=== PATIENT | male | born 1980 ===

== ENCOUNTER 2020-04-20 22:34 | Emergency (ER) | payer OTHER ==
[~2020-04-20] VITALS: Ht 185.4 cm; Wt 79.4 kg
--- NOTE | 2020-04-20 22:40 | NUR ---
Patient brought in by [facility] 84 via gurney for what patient believes was a seizure, no history of seizures noted, Patient alert and oriented x4, no complaints of pain, Side rails padded per seizure protocol, suction at bedside, WNL
[2020-04-20] MEDS ORDERED: [UNRECOGNIZED DRUG - REMARK] (22:43)
[2020-04-20] MEDS ORDERED: IV NORMAL SALINE 1000 ML BAG IV ONE (22:45)
[2020-04-20 22:58] LABS: BASOPHILS # (AUTO) 0.1 K/uL (0.0-8.0); EOSINOPHILS # (AUTO) 0.2 K/uL (0.0-0.7); EOSINOPHILS % (AUTO) 1.7 % (0.0-7.0); HEMATOCRIT 44.2 % (36.7-47.1); LYMPHOCYTES # (AUTO) 5.1 K/uL (20.0-40.0); LYMPHOCYTES % (AUTO) 47.6 % (20.5-51.5); MEAN CORPUSCULAR HEMOGLOBIN 29.2 uug (23.8-33.4); MEAN CORPUSCULAR HGB CONC 34 g/dL (32.5-36.3); MEAN CORPUSCULAR VOLUME 86.1 fL (73.0-96.2); MONOCYTES # (AUTO) 0.7 K/uL (2.0-10.0); NEUTROPHILS # (AUTO) 4.5 K/uL (1.8-8.9); NEUTROPHILS % (AUTO) 42.7 % (38.5-71.5); PLATELET COUNT (AUTO) 255 K/uL (152-348); RED BLOOD CELL COUNT(AUTO) 5.14 MIL/uL (4.06-5.63); WHITE BLOOD COUNT (AUTO) 10.6 K/uL (3.6-10.2)
[2020-04-20 23:10] LABS: CREATININE 1.6 mg/dL (0.6-1.3); POTASSIUM 3.6 mmol/L (3.5-5.1)
[2020-04-20 23:15] LABS: BILIRUBIN,DIRECT 0.1 mg/dL (0.0-0.2); BILIRUBIN,TOTAL 0.7 mg/dL (0.2-1.0); TOTAL PROTEIN, SERUM 7.8 g/dL (6.4-8.2)
[2020-04-20] MEDS ORDERED: ACETAMINOPHEN ES 500 MG TABLET PO ONE (23:30)
[2020-04-20] MEDS ORDERED: ACETAMINOPHEN ES 500 MG TABLET ONE (23:35)
--- NOTE | 2020-04-20 23:48 | NUR ---
Patient noted resting in bed, complaints of neck and shoulder pain, two ice packs placed on each shoulder
[2020-04-21] MEDS ORDERED: LORAZEPAM 0.5 MG TABLET PO ONE
[2020-04-21] MEDS ORDERED: IV NORMAL SALINE 1000 ML BAG IV ONE
[2020-04-21] MEDS ORDERED: LORAZEPAM 0.5 MG TABLET ONE (00:03)
--- NOTE | 2020-04-21 01:56 | NUR ---
Patient discharged to home in stable condition. Able to ambulate with steady gait, took all belongings, Written and verbal after care instructions given. copies of head CT and labs given to patient. IV taken out. Patient verbalizes understanding of instructions. Stressed follow up or return to ER for worsening s/s.
[2020-04-21 02:01] VITALS: BP 129/78
== END 2020-04-21 02:02 | disposition home or self-care (01) ==
LOC: ER 22:36
DX: R56.9 Unspecified convulsions (principal); R51.9 Headache, unspecified; N28.9 Disorder of kidney and ureter, unspecified; I44.0 Atrioventricular block, first degree
CPT/HCPCS: 36415; 70450; 85025; 93005; A4663; A9150

== ENCOUNTER 2023-09-14 23:11 | Emergency (ER) | payer OTHER ==
[~2023-09-14] VITALS: Ht 185.4 cm; Wt 83.0 kg
[~2023-09-14 23:11] MED LIST: [UNRECOGNIZED DRUG - REMARK]
[2023-09-15] MEDS: IV NORMAL SALINE 500 ML BAG IV ONE (00:03)
[2023-09-15 00:04] LABS: BASOPHILS # (AUTO) 0.3 K/UL (0.0-0.2); BASOPHILS % (AUTO) 3.2 % (0.0-2.0); EOSINOPHILS # (AUTO) 0.2 K/uL (0.0-0.7); HEMATOCRIT 43.8 % (36.7-47.1); HEMOGLOBIN 14.7 g/dL (12.5-16.3); LYMPHOCYTES # (AUTO) 2.7 K/uL (0.8-4.8); LYMPHOCYTES % (AUTO) 30.7 % (20.5-51.5); MEAN CORPUSCULAR HEMOGLOBIN 28.4 uug (23.8-33.4); MEAN CORPUSCULAR HGB CONC 34 g/dL (32.5-36.3); MEAN CORPUSCULAR VOLUME 84.6 fL (73.0-96.2); MONOCYTES # (AUTO) 0.5 K/uL (0.1-1.30); NEUTROPHILS # (AUTO) 5.1 K/uL (1.8-8.9); NEUTROPHILS % (AUTO) 58.1 % (38.5-71.5); PLATELET COUNT (AUTO) 268 K/uL (152-348); RED BLOOD CELL COUNT(AUTO) 5.18 MIL/uL (4.06-5.63); RED CELL DISTRIBUTION WIDTH 12.9 % (12.1-16.2); WHITE BLOOD COUNT (AUTO) 8.8 K/uL (3.6-10.2)
[2023-09-15 00:40] LABS: BILIRUBIN,TOTAL 1.4 mg/dL (0.2-1.0); CALCIUM 8.6 mg/dL (8.5-10.1); CREATININE 1.1 mg/dL (0.6-1.3); MAGNESIUM 2.4 mg/dL (1.8-2.4); POTASSIUM 3.7 mmol/L (3.5-5.1); TOTAL PROTEIN, SERUM 7.3 g/dL (6.4-8.2)
[2023-09-15 01:09] VITALS: BP 110/75; TEMP 98.6; O2SAT 100
== END 2023-09-15 01:10 | disposition home or self-care (01) ==
LOC: ER 23:12
DX: R55 Syncope and collapse (principal); E86.0 Dehydration; Z79.899 Other long term (current) drug therapy; Z88.1 Allergy status to other antibiotic agents
CPT/HCPCS: 99285; 71045; 80053; 82550; 83735; 85025; 84484; 36415; 93005; 83605; 96360; J7040; A4606; A4663

== ENCOUNTER 2023-10-21 14:59 | Emergency (ER) | payer OTHER ==
[~2023-10-21] VITALS: Ht 185.4 cm; Wt 81.6 kg
[2023-10-21] MEDS ORDERED: CELE-85 PO (16:15)
[2023-10-21] MEDS ORDERED: CARI350T27 PO (16:15)
[2023-10-21 16:29] VITALS: BP 121/76; O2SAT 100
== END 2023-10-21 16:29 | disposition home or self-care (01) ==
LOC: ER 15:01
DX: M54.16 Radiculopathy, lumbar region (principal); Z79.899 Other long term (current) drug therapy; Z88.8 Allergy status to other drugs, medicaments and biological substances
CPT/HCPCS: A4606; A4663